=== PATIENT | male | born 1975 | race Two or more races ===

== ENCOUNTER 2016-11-10 19:41 | Inpatient (IN) | payer BC ==
--- NOTE | ~2016-11-10 | DS ---
Unit #: [id number] #: [id number] Patient: YUNIEL GUTIERREZ [id number] [address] [place], [place] [address] [id number] MR#: [id number] NAME: YUNIEL GUTIERREZ ROOM: 229 Age: 41 Sex: M Admission Date: 11/10/2016 : 1975 Discharge Date: 11/13/2016 Attending Physician: Davin Mendez Jr., M.D. DISCHARGE SUMMARY DISCHARGE DIAGNOSIS Acute gangrenous cholecystitis with cholelithiasis. OPERATIVE PROCEDURE Laparoscopic cholecystectomy, drainage of right upper quadrant. DISCHARGE MEDICATIONS 1. Augmentin 875 mg 1 p.o. b.i.d. 2. Lortab 7.5 mg 1 p.o. q.4 hours p.r.n. pain. HISTORY OF PRESENT ILLNESS AND HOSPITAL COURSE This is a 41-year-old white male with acute midepigastric, right upper quadrant abdominal pain and tenderness with documented CT findings of acute cholecystitis. He was admitted, cooled off for 24 hours, given intravenous antibiotics, taken to surgery on 11/11 where acute gangrenous cholecystitis was found. Laparoscopic cholecystectomy was performed with drainage of right upper quadrant without complication. Postoperative course, considering the fact of the disease process, has been fairly benign. The patient's diet has been gradually advanced. He is on a low-fat diet. His labs show no significant increase in liver function test at this time. The patient will be discharged on the above diet and will come back to see Dr. Mendez in the office in 1 week for stable removal. Jacobo-Becker drain has been removed before discharge. Dictated by... Chloé Pop/rina TD: 11/14/2016 08:18 JOB #: [id number] Unit #: [id number] #: [id number] Patient: YUNIEL GUTIERREZ DISCHARGE SUMMARY Page 1 of 1 X Patrick Anaya MD X DISCHARGE SUMMARY
--- NOTE | ~2016-11-10 | OR ---
Unit #: [id number] #: [id number] Patient: YUNIEL GUTIERREZ [id number] [address] [place], [place] [address] [id number] I MR#: [id number] NAME: YUNIEL GUTIERREZ ROOM: 229 Date of Procedure: 11/11/2016 Admission Date: 11/10/2016 Surgeon: Davin Mendez Jr., M.D. : 1975 Attending Physician: Davin Mendez Jr., M.D. OPERATIVE REPORT INDICATIONS FOR PROCEDURE The patient is a 41-year-old white [place] male who presented to the emergency room, complaining of severe mid epigastric and right upper quadrant abdominal pain. This apparently had been going on for at least 6 days. He presented to the emergency room at [facility] and was worked up and noted to have evidence of probable acute cholecystitis with cholelithiasis. Liver function tests were mildly elevated. The patient was brought to the operating room at this time for laparoscopic cholecystectomy. He understands the procedure including the risks, including that of common duct injury, biliary leak, and bleeding, and intra-abdominal organ injury, and consents. PREOPERATIVE DIAGNOSES Acute cholecystitis with cholelithiasis. POSTOPERATIVE DIAGNOSES Acute cholecystitis with cholelithiasis, noting necrotizing cholecystitis with a wrapped gallbladder and severe inflammatory changes in the area of the triangle of Calot and samuel hepatis. ANESTHESIA General with endotracheal intubation with 0.5% Marcaine with epinephrine locally in the port sites. PROCEDURE PERFORMED Laparoscopic lysis of adhesions with laparoscopic cholecystectomy and drainage of the right upper quadrant. DESCRIPTION OF PROCEDURE The patient was positioned in the supine position after being anesthetized and intubated, was prepped and draped in routine fashion for laparoscopic cholecystectomy. A small supraumbilical incision was made approximately a cm in length. This was carried down to the fascia. The fascia lifted between 2 Faisal clamps and a Veress needle introduced into the abdomen. The abdomen was then inflated with CO2 gas. A 5-mm port was introduced in the abdomen followed by the camera. There was no evidence of any injury related to introduction of the port of the Veress needle. Brief intra-abdominal exploration was carried out. The patient was noted to have a completely wrapped gallbladder with omentum. The rest of the exam was not remarkable. Two 5-mm ports were placed laterally and an 11-mm port just to the right of the upper midline. The gallbladder and right lobe of the liver were lifted with a grasping clamp and multiple adhesions Unit #: [id number] #: [id number] Patient: YUNIEL GUTIERREZ were dissected free by both sharp dissection and blunt dissection from the gallbladder. The omentum was checked and there was no evidence of any bleeding from the omentum after it was released. After exposing the entire gallbladder, there was severe inflammation in the area of the samuel hepatis and the triangle of Calot, but dissection was carried down in this area meticulously and the cystic duct was identified as well as the cystic artery and both were hemoclipped and divided. The cystic duct was divided approximately 1 cm from its junction with the common duct. The gallbladder was then removed from its bed with the hook cautery using a current of 20 and several small, what appeared to be, ducts of Luschka were hemoclipped. After the gallbladder was freed up, it was placed in an EndoCatch bag and brought out through the larger port site following dilatation of the port site with a Shelia clamp. After it was removed, it was sent to pathology. The port was replaced. Subhepatic space checked. There was no evidence of any active bleeding from the gallbladder bed. It was felt that a drain was indicated because of the fact there was some spillage of both bile and a small amount of small stones as much of these were removed as possible with the suction device and irrigation. After complete irrigation and suction was performed, a 10 mm Jacobo-Becker drain was placed in the subhepatic space and brought out through the lateral port site. The area was again checked. There was total hemostasis. The ports were removed. CO2 was expressed from the abdomen. The fascia in the larger port site was approximated with a [id number] 0 Vicryl suture x2 and the wounds were irrigated. After hemostasis achieved with Bovie cautery, they were injected with 0.5% Marcaine with epinephrine locally and the skin edges were approximated with stainless-steel skin clips and skin stapling device. Sterile dressings were applied externally. Estimated blood loss less than 100 mL. The patient received less than 2000 mL of crystalloid solution during the procedure. Sponges and instruments counts were correct x3. There was one 10-mm Jacobo-Becker drain used as noted above. No complications. The patient was taken to the recovery room with stable vital signs in satisfactory condition. Dictated by... Davin Mendez Jr., M.D. JMB/dee dee TD: 11/12/2016 02:35 JOB #: [id number] CC: Enrique Marshall M.D. OPERATIVE REPORT Page 1 of 1 X Davin Mendez MD X PROCEDURE OPERATIVE NOTE
--- NOTE | ~2016-11-10 | CT2 ---
[facility] A Service of [facility] RADIOLOGY TEXT RESULTS PATIENT: YUNIEL GUTIERREZ LOCATION: A 229-01 : [birth year] UNIT #: [id number] AGE: [address]: Davin Mendez MD SEX: M ORDER DR: [id number] [place] [id number] I MR#: [id number] Acc #: [id number] NAME: YUNIEL GUTIERREZ : 1975 SEX: M STUDY DATE/TIME: 11/10/2016 20:24 UNIT: SEDOF ROOM: [id number] STUDY DESCRIPTION: CT Abd and Pelv W Cont Attending Physician: Davin Mendez Jr., M.D. Ordering Physician: Sourav Marie P.A.-C. MEDICAL IMAGING REPORT This report is preliminary unless electronic signature is present. EXAM CT abdomen and pelvis with contrast, 11/10/2016 HISTORY A 41-year-old male in the ED complaining of 6-day history of right upper quadrant abdomen pain. TECHNIQUE This CT exam was performed with one or more of the following radiation dose reduction techniques: automatic exposure control, adjustment of mA and/or kV according to patient size, and iterative reconstruction. FINDINGS Exam shows diffuse gallbladder wall thickening, there is mild soft tissue stranding surrounding the gallbladder. The findings are concerning for potential acute cholecystitis. There is no intrahepatic or extrahepatic bile duct dilatation. The pancreas is normal in appearance with no evidence of acute pancreatitis. Mild diffuse hepatic steatosis. Liver and spleen are otherwise negative. 3 mm nonobstructing calculus in the right mid kidney. Both kidneys are otherwise negative. Small bowel and colon are normal in caliber and appearance. The appendix is normal. Normal-caliber abdominal aorta. Pelvis: Bladder, prostate and rectum are within normal limits. No inguinal hernia or significant abdominal wall hernia. Limited lung base images show no active disease in the lower chest. IMPRESSION 1. Diffuse gallbladder wall thickening with pericholecystic soft tissue stranding concerning for potential acute cholecystitis. There is no bile duct dilatation. There is no evidence of acute pancreatitis. [facility] A Service of [facility] RADIOLOGY TEXT RESULTS PATIENT: YUNIEL GUTIERREZ LOCATION: C2A 229-01 : [birth year] UNIT #: [id number] AGE: [address]: Davin Mendez MD SEX: M ORDER DR: 2. Mild diffuse hepatic steatosis. 3. A 3 mm nonobstructing right mid renal calculus. 4. The remainder of the exam is negative. The appendix is normal. Dictated by... Jared Kay M.D. THIS IS AN ELECTRONICALLY VERIFIED REPORT Jared Kay M.D. at 11/13/2016 5:59 AM CHRISTINA/fredy TD: 11/11/2016 15:58 JOB #: [id number] MEDICAL IMAGING REPORT Page 1 of 1
--- NOTE | ~2016-11-10 | HP ---
Unit #: [id number] #: [id number] Patient: YUNIEL GUTIERREZ [id number] [address] [address] [id number] I MR#: [id number] NAME: YUNIEL GUTIERREZ ROOM: 229 Age: Sex: M Admission Date: 11/10/2016 : 1975 Attending Physician: Davin Mendez Jr., M.D. HISTORY AND PHYSICAL CHIEF COMPLAINT Mid epigastric and right upper quadrant abdominal pain. HISTORY OF PRESENT ILLNESS The patient is a 41-year-old [place] Citizen male who was in normal good health up until approximately 5-6 days ago when he developed some vague mid epigastric and right upper quadrant abdominal pain. Over the past several days, this has worsened and become much more intense. He has had some associated nausea and occasional vomiting. He has had no fever, no chills and basically no other symptoms. He has had no diarrhea or constipation. PAST MEDICAL HISTORY OR SERIOUS ILLNESSES None. PAST SURGICAL HISTORY None in the past. HOME MEDICATIONS None chronically. ALLERGIES None known. TRANSFUSIONS None in the past. IMMUNIZATIONS Up to date. SOCIAL HISTORY The patient is a nonsmoker. Occasional drinker. Has a normal good appetite. No recent weight change. FAMILY HISTORY Noncontributory. REVIEW OF SYSTEMS A 12-system review has been performed which is unremarkable except as noted in present illness. The patient denies any past history of jaundice, hepatitis, pancreatitis, or peptic ulcer disease. PHYSICAL EXAMINATION VITAL SIGNS: Normal. GENERAL: The patient is a well-developed 41-year-old male in no Unit #: [id number] #: [id number] Patient: YUNIEL GUTIERREZ acute distress. HEENT: Unremarkable. NECK: Supple. CHEST: Equal bilateral expansion with bilateral equal breath sounds. LUNGS: Clear bilaterally. HEART: Regular rhythm without murmurs or gallops. No evidence of cardiomegaly clinically. ABDOMEN: Soft, moderately tender in the mid epigastrium and right lower quadrant without mass or organomegaly. There is no gross abdominal distention. There is some guarding without rebound. Active bowel sounds are present. There is no evidence of ascites or hernias. EXTREMITIES: Full range of motion without limitation. There is no evidence of peripheral edema. BACK: No CVA tenderness. NEUROLOGIC: Grossly intact. DIAGNOSTIC STUDIES LABORATORY: Liver function tests are mildly elevated with a normal total bilirubin. White blood cell count is 14,300. IMAGING: Workup revealed evidence of gallstones on ultrasound. CT scan apparently did show inflammation. IMPRESSION The patient most likely has acute cholecystitis. I have discussed options with him. He wants to go ahead with a laparoscopic cholecystectomy. He understands the procedure including the risks, including that of common duct injury, biliary leak and bleeding and intraabdominal organ injury and consents. Dictated by Davin Mendez Jr., M.D. MACI/isela TD: 11/11/2016 12:33 JOB #: [id number] HISTORY AND PHYSICAL Page 1 of 1 X Davin Mendez MD X HISTORY AND PHYSICAL
[2016-11-10 19:01] LABS: URINE SOURCE CLEAN CATCH
[2016-11-10 19:03] LABS: URINE APPEARANCE CLEAR; URINE BILIRUBIN NEG (NEG); URINE BLOOD TRACE-LYSED (NEG); URINE COLOR YELLOW; URINE GLUCOSE NEG (NORM); URINE KETONE 1+ (NEG); URINE LEUKOCYTE ESTERASE NEG (NEG); URINE NITRATE NEG (NEG); URINE PROTEIN TRACE (NEG); URINE SPECIFIC GRAVITY 1.025 (1.003-1.035)
[2016-11-10 19:10] LABS: MICRO INDICATED? YES
[2016-11-10 19:11] LABS: CULTURE INDICATED? NO; URINE BACTERIA NEG (NEG); URINE MUCUS PRESENT; URINE RBC 0-2 /[HPF] (0-2); URINE SQUAMOUS EPITHELIAL CELL OCCAS /[HPF]
[2016-11-10 19:27] LABS: BASOPHIL% 0.3 % (0-2.5); EOSINOPHIL# 0.1 X10e3 (0-0.7); EOSINOPHIL% 0.9 % (0.0-7.0); HEMATOCRIT 38.7 % (38.0-50.0); HEMOGLOBIN 13.3 gm/dL (13.0-16.0); LYMPHOCYTE# 3.4 X10e3 (1.0-3.5); LYMPHOCYTE% 23.5 % (17.0-45.0); MEAN CELL VOLUME 83.9 FL (83-96); MEAN CORPUSCULAR HEMOGLOBIN 28.9 PG (28-34); MEAN CORPUSCULAR HGB CONC 34.5 g/dL (30-36); MEAN PLATELET VOLUME 6.8 FL (6.5-11.5); MONOCYTE# 0.7 X10e3 (0-1.0); NEUTROPHIL% 70.3 % (40-75); PLATELET COUNT 235 X10e3 (140-420); RED BLOOD COUNT 4.61 X10e (3.90-5.60); RED CELL DISTRIBUTION WIDTH 12.1 % (11.0-15.5); WHITE BLOOD COUNT 14.3 X10e3 (4.0-10.5)
[2016-11-10 19:28] LABS: DIFF IND NO
[~2016-11-10 19:41] MED LIST: CIPRO PO; NO MEDICATIONS; NORCO 5/325 TAB1 TAB PO; ZOFRAN PO
[2016-11-10 19:53] LABS: ALBUMIN SERUM 4.1 g/dL (3.5-5.0); BILIRUBIN, DIRECT 0.6 mg/dL (0.0-0.2); BILIRUBIN,TOTAL 1.6 mg/dL (0.2-2.0); BUN/CREATININE RATIO 12.22; CALCIUM SERUM 9.1 mg/dL (8.4-10.2); CREATININE SERUM 0.9 mg/dL (0.6-1.4); GLOM FILT RATE Estimated 106.5 mL/min (>60); POTASSIUM 4.1 mmol/L (3.5-5.1); PROTEIN TOTAL SERUM 7.9 g/dL (6.0-8.3)
[2016-11-11] MEDS ORDERED: NO MEDICATIONS (00:58)
[2016-11-11 08:35] LABS: BASOPHIL# 0.1 X10e3 (0-0.3); BASOPHIL% 0.7 % (0-2.5); DIFF IND NO; EOSINOPHIL% 0.5 % (0.0-7.0); HEMATOCRIT 43.1 % (38.0-50.0); HEMOGLOBIN 14.7 gm/dL (13.0-16.0); LYMPHOCYTE% 31.4 % (17.0-45.0); MEAN CORPUSCULAR HEMOGLOBIN 28.9 PG (28-34); MONOCYTE# 0.5 X10e3 (0-1.0); MONOCYTE% 5.3 % (3.0-12.0); NEUTROPHIL% 62.1 % (40-75); PLATELET COUNT 218 X10e3 (140-420); RED BLOOD COUNT 5.07 X10e (3.90-5.60); RED CELL DISTRIBUTION WIDTH 12.4 % (11.0-15.5); WHITE BLOOD COUNT 9.7 X10e3 (4.0-10.5)
[2016-11-11 09:11] LABS: ALBUMIN SERUM 3.7 g/dL (3.5-5.0); CALCIUM SERUM 9.1 mg/dL (8.4-10.2); CREATININE SERUM 0.8 mg/dL (0.6-1.4); GLOM FILT RATE Estimated 111.8 mL/min (>60); POTASSIUM 4.1 mmol/L (3.5-5.1); PROTEIN TOTAL SERUM 7.4 g/dL (6.0-8.3)
[2016-11-12 05:10] LABS: HEMATOCRIT 41.5 % (38.0-50.0); HEMOGLOBIN 13.8 gm/dL (13.0-16.0); MEAN CELL VOLUME 85.9 FL (83-96); MEAN CORPUSCULAR HEMOGLOBIN 28.6 PG (28-34); MEAN CORPUSCULAR HGB CONC 33.2 g/dL (30-36); MEAN PLATELET VOLUME 7.2 FL (6.5-11.5); RED BLOOD COUNT 4.83 X10e (3.90-5.60); RED CELL DISTRIBUTION WIDTH 12.3 % (11.0-15.5); WHITE BLOOD COUNT 12.9 X10e3 (4.0-10.5)
[2016-11-12 06:43] LABS: ALBUMIN SERUM 3.3 g/dL (3.5-5.0); BILIRUBIN,TOTAL 2.1 mg/dL (0.2-2.0); CALCIUM SERUM 9.1 mg/dL (8.4-10.2); GLOM FILT RATE Estimated 93.7 mL/min (>60); POTASSIUM 4.7 mmol/L (3.5-5.1); PROTEIN TOTAL SERUM 6.4 g/dL (6.0-8.3)
[2016-11-13] MEDS ORDERED: AUGMENTIN PO (08:16)
[2016-11-13] MEDS ORDERED: LORTAB 7.5-3251 EACH PO (08:16)
== END 2016-11-13 08:41 | disposition home or self-care (01) | DRG 419 ==
LOC: SED 19:41 → SEDOF 21:30 → C2A 11-11 00:43
PROVIDERS: Physician Assistant; Surgery
PROC: 0DNS4ZZ (ICD-10-PCS; 2016-11-11)
PROC: 0D9W40Z Drainage of Peritoneum with Drainage Device, Percutaneous Endoscopic Approach (ICD-10-PCS; 2016-11-11)
PROC: 0FT44ZZ Resection of Gallbladder, Percutaneous Endoscopic Approach (ICD-10-PCS; principal; 2016-11-11 10:00)
DX: K80.00 Calculus of gallbladder with acute cholecystitis without obstruction (principal); K66.0 Peritoneal adhesions (postprocedural) (postinfection); K82.8 Other specified diseases of gallbladder; Z87.442 Personal history of urinary calculi
CPT/HCPCS: 36415; 74177; 80048; 80053; 80076; 81003; 83690; 85025; 85027; 88304; 96361; 96374; 96375; 99285; J0330; J1100; J1170; J1650; J1885; J2250; J2405; J2543; J3010; Q9967